=== PATIENT | female | born 1985 | race American Indian/Alaskan Native ===

== ENCOUNTER 2017-01-21 23:31 | Emergency (ER) | payer SELFPAY ==
[2017-01-21 23:32] VITALS: BMI 25.7
[2017-01-21 23:51] VITALS: BP 139/106; PULSE 108; RESP 16; TEMP 98.6; O2SAT 100
[2017-01-22] MEDS ORDERED: Iohexol 240 (50 ml) PO ONE (00:21)
[2017-01-22] MEDS ORDERED: Sodium Chloride 0.9% 1,000 ML IV STA (00:21)
[2017-01-22] MEDS ORDERED: Albuterol-Ipratrop 3 mg / 0.5 (3 ml) UD INH STA (00:22)
[2017-01-22] MEDS ORDERED: Iohexol 240 (50 ml) ONE (00:38)
[2017-01-22] MEDS ORDERED: Albuterol-Ipratrop 3 mg / 0.5 (3 ml) UD ONE (00:39)
[2017-01-22 00:47] LABS: RBC URINE 3 /hpf (0-3); URINE BILIRUBIN NEGATIVE (NEGATIVE); URINE BLOOD NEGATIVE (NEGATIVE); URINE COLOR YELLOW (YELLOW); URINE GLUCOSE (UA) NEG (Normal); URINE KETONE 20 mg/dL (NEGATIVE); URINE LEUKOCYTE ESTERASE TRACE Leu/uL (Negative); URINE PROTEIN NEGATIVE (NEGATIVE); URINE UROBILINOGEN 0.2-1.0 mg/dL (0.2-1.0); WBC URINE 1 /hpf (0-5)
[2017-01-22 00:59] LABS: BASO # 0.1 K/uL (0.0-0.2); EOS # 0.7 K/uL (0.0-0.7); EOS % 5.5 % (0.0-4.0); HEMATOCRIT 28.7 % (34.0-47.0); LYMPH # 2.2 K/uL (1.0-4.3); LYMPH % 16.6 % (20.0-40.0); MEAN CORPUSCULAR HEMOGLOBIN 22.1 pg (27.0-31.0); MEAN CORPUSCULAR HGB CONC 31.9 g/dL (33.0-37.0); MEAN PLATELET VOLUME 7.6 fl (7.2-11.7); MONO # 1.1 K/uL (0.0-0.8); MONO % 8.1 % (0.0-10.0); NEUT # 8.9 K/uL (1.8-7.0); NEUT % 68.8 % (50.0-75.0); NRBC % 0.1 % (0.0-0.0)
--- NOTE | 2017-01-22 01:04 | ED PDOC ---
HPI: Abdomen Time Seen by Provider: 01/21/17 23:43 Chief Complaint (Nursing): Abdominal Pain Chief Complaint (Provider): Abdominal Pain History Per: Patient History/Exam Limitations: no limitations Onset/Duration Of Symptoms: Intermittent Episodes (x1 week), Worse Since ( during work today, abdominal pain worsened) Current Symptoms Are (Timing): Still Present Location Of Pain/Discomfort: Diffuse, Epigastric (worst in epigastric region) Associated Symptoms: Vomiting, Constipation. denies: Fever, Chills Last Bowel Movement: Yesterday Additional Complaint(s): 31 year old female presents to ED with complaints of intermittent abdominal pain x1 week and has a past medical history of Ye-Danlos syndrome. Notes that pain worsened while at work earlier today. (+) vomiting x4 episodes (non- bloody, non-bilious), abdominal distension, and SOB. (-) fever or chills. Notes that she has not had a bowel movement since yesterday, which is abnormal for her. PCP: None Past Medical History Reviewed: Historical Data, Nursing Documentation, Vital Signs Vital Signs: Last Vital Signs Temp 98.6 F 01/21/17 23:48 Pulse 108 H 01/21/17 23:48 Resp 16 01/21/17 23:48 BP 139/106 H 01/21/17 23:48 Pulse Ox 100 01/22/17 03:56 - Medical History PMH: Anxiety, Asthma, Bipolar Disorder, Depression Denies: Diabetes, Hepatitis, HIV, HTN, Chronic Kidney Disease, Seizures, Sexually Transmitted Disease - Surgical History Surgical History: Denies: No Surg Hx - Family History Family History: States: No Known Family Hx - Social History Current smoker - smoking cessation education provided: No Ex-Smoker (has not smoked in the last 12 months): No Alcohol: Occasional Drugs: Denies - Home Medications Home Medications: Ambulatory Orders Medication Instructions Recorded Acetaminophen with Codeine 1 tab PO Q6 #10 tab 08/20/14 [Tylenol with Codeine No. 3 300 mg-30 mg] Doxycycline [Adoxa] 100 mg PO BID #14 tab 08/20/14 Metronidazole [Flagyl] 2,000 mg PO ONCE #4 tab 08/20/14 Clindamycin [Cleocin] 300 mg PO TID #21 cap 08/23/14 Esomeprazole Magnesium [Nexium] 40 mg PO ACB 30 Days capsule. 10/29/15 Ciprofloxacin [Cipro] 250 mg PO BID #6 tab 01/09/16 Ciprofloxacin [Cipro] 500 mg PO BID #14 tab 01/12/16 Phenazopyridine [Pyridium] 100 mg PO BID #6 tab 01/12/16 Famotidine [Pepcid] 20 mg PO BID #20 tab 01/22/17 Pantoprazole Sodium [Protonix] 20 mg PO DAILY #30 ect 01/22/17 - Allergies Allergies/Adverse Reactions: Allergies Allergy/AdvReac Type Severity Reaction Status Date / Time FISH Allergy ANAPHYLAXIS Verified 10/28/15 22:13 peanut Allergy ANAPHYLAXIS Verified 10/28/15 22:13 tree nut Allergy ANAPHYLAXIS Verified 10/28/15 22:13 Review of Systems ROS Statement: Except As Marked, All Systems Reviewed And Found Negative Constitutional: Negative for: Fever, Chills Gastrointestinal: Positive for: Vomiting, Abdominal Pain, Constipation, Other (( +) distension) Physical Exam - Reviewed Nursing Documentation Reviewed: Yes Vital Signs Reviewed: Yes - Physical Exam Appears: Positive for: Non-toxic, No Acute Distress Skin: Positive for: Normal Color, Warm, Dry Eye Exam: Positive for: Normal appearance ENT: Positive for: Normal ENT Inspection Neck: Positive for: Normal, Painless ROM Cardiovascular/Chest: Positive for: Regular Rate, Rhythm, Tachycardia Respiratory: Positive for: Normal Breath Sounds. Negative for: Respiratory Distress Gastrointestinal/Abdominal: Positive for: Soft, Tenderness (diffuse tenderness, worse in epigastric region), Distended. Negative for: Normal Exam Extremity: Positive for: Normal ROM. Negative for: Deformity Neurologic/Psych: Positive for: Alert, Oriented. Negative for: Motor/Sensory Deficits - Laboratory Results Result Diagrams: 01/22/17 00:50 01/22/17 00:50 - ECG O2 Sat by Pulse Oximetry: 100 (RA) Pulse Ox Interpretation: Normal Medical Decision Making Medical Decision Makin Initial impression: colitis v obstruction v diverticulitis v appendicitis Initial plan: * CTA A/P * Labs * Lact Acid * Lipase * UPreg * UDip * Duonebs 3mL INH * NS IV * Iohexol 50mL PO * Protonix Inj 40mg IVP * Peak flow pre/post Tx * UA * Re-eval 0324 CT FINDING LOWER THORAX: No infiltrate seen in the lung bases. ABDOMEN: LIVER: 9 mm low density liver lesion, most likely a cyst. Hepatomegaly, with the liver measuring 20 cm in length on the coronal images. GALLBLADDER AND BILE DUCTS: No CT evidence of acute cholecystitis. No evidence of significant biliary ductal dilatation. PANCREAS: No CT evidence of acute pancreatitis. SPLEEN: No acute abnormality of the spleen identified. ADRENALS: No acute abnormality of the adrenal glands identified. KIDNEYS AND URETERS: No acute abnormality of the kidneys identified. No evidence of significant hydrouereteronephrosis. STOMACH AND BOWEL: Wall thickening of the distal stomach, associated with multiple nearby small lymph nodes. Otherwise, no significant abnormality of the bowel is identified. No evidence of bowel obstruction. APPENDIX: Appendix is seen, and is within normal limits in appearance. PELVIS: BLADDER: No acute abnormality of the bladder identified. REPRODUCTIVE: No acute abnormality of the reproductive organs is seen. No acute abnormality of the uterus identified. No evidence of large adnexal masses. ABDOMEN and PELVIS: INTRAPERITONEAL SPACE: No evidence of free intraperitoneal air or fluid. 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 No acute fractures or other acute bony abnormality visualized. SOFT TISSUES: No acute abnormality of the visualized soft tissues is seen. VASCULATURE: No evidence of abdominal aortic aneurysm. No evidence of periaortic hemorrhage. LYMPH NODES: See above. No evidence of diffuse pathologic lymphadenopathy. IMPRESSION: - Wall thickening of the distal stomach, associated with multiple nearby small lymph nodes. In an acute setting, the findings are most likely secondary to gastritis. Recommend clinical correlation and followup. - See above for remaining findings. 325 Pt. snoring in room. Once woken up, states feeling better, no longer having pain. Results explained. Will d/c home. Return precautions discussed, GI referral given. Scribe Attestation: Documented by Daxa Franco acting as a scribe for Perez Azul MD. Scribe Attestation: All medical record entries made by the Scribe were at my direction and personally dictated by me. I have reviewed the chart and agree that the record accurately reflects my personal performance of the history, physical exam, medical decision making, and the department course for this patient. I have also personally directed, reviewed, and agree with the discharge instructions and disposition. Disposition - Clinical Impression Clinical Impression: Gastritis - Patient ED Disposition Is Patient to be Admitted: No - Disposition Referrals: Dickson RICO,MD Hany [Medical Doctor] - Disposition: Routine/Home Disposition Time: 03:49 Condition: IMPROVED Prescriptions: Famotidine [Pepcid] 20 mg PO BID #20 tab Pantoprazole Sodium [Protonix] 20 mg PO DAILY #30 ect Instructions: Gastritis (ED), Acute Abdominal Pain (DC) Forms: [employer] (Mongolian)
[2017-01-22 01:11] LABS: ALB/GLOB RATIO 1.1 (1.0-2.1); ALKALINE PHOSPHATASE 51 U/L (38-126); ALT/SGPT 30 U/L (9-52); AST/SGOT 32 U/L (14-36); BILIRUBIN,TOTAL 0.3 mg/dl (0.2-1.3); BLOOD UREA NITROGEN 17 mg/dl (7-17); CALCIUM 9.2 mg/dL (8.4-10.2); CARBON DIOXIDE 25 mmol/L (22-30); CHLORIDE 104 mmol/L (98-107); GFR AFRICAN-AMERICAN > 60; GLUCOSE,RANDOM 80 mg/dL (65-105); LIPASE 97 U/L (23-300); POTASSIUM 3.9 MMOL/L (3.6-5.0); SODIUM 138 mmol/l (132-148); TOTAL PROTEIN 7.4 G/DL (6.3-8.2)
[2017-01-22 01:28] LABS: MEAN CELL VOLUME 69.3 fl (81.0-99.0)
[2017-01-22] MEDS ORDERED: Iohexol 300 100 ML IJ ONE (02:15)
--- NOTE | 2017-01-22 11:06 | CT ---
PROCEDURE: CT Abdomen and Pelvis with contrast HISTORY: Abdominal pain and vomiting. Relevant medical history: History of Ye-Danlos syndrome. COMPARISON: 10/29/2015 TECHNIQUE: Contrast dose: 90 cc Omnipaque 300 Radiation dose: Total exam DLP = 378.38 mGy-cm. This CT exam was performed using one or more of the following dose reduction techniques: Automated exposure control, adjustment of the mA and/or kV according to patient size, and/or use of iterative reconstruction technique. FINDINGS: LOWER THORAX: Unremarkable. LIVER: Hepatic steatosis. No focal masses. No intrahepatic bile duct dilatation or perihepatic ascites. Hepatomegaly. Incidental finding(s): Sub cm cyst right hepatic lobe near the dome of the diaphragm GALLBLADDER AND BILE DUCTS: Unremarkable. PANCREAS: Unremarkable. No gross lesion or ductal dilatation. SPLEEN: Unremarkable. Incidental finding(s): Accessory splenule. ADRENALS: Unremarkable. No mass. KIDNEYS AND URETERS: Unremarkable. No hydronephrosis. No solid mass. VASCULATURE: Unremarkable. No aortic aneurysm. BOWEL: Diffuse antral thickening without focal mass or ulceration. This appears to be either a recurrent for chronic problem, similar findings with respect to severity and distribution were seen on the prior CT scan 10/29/2015. The remainder the stomach, visualized distal esophagus are unaffected. Dilatation, mild of the wall of the jejunum, small bowel consistent with mild enteritis without obstructing abnormality. APPENDIX: Normal appendix. PERITONEUM: Unremarkable. No free fluid. No free air. LYMPH NODES: Unremarkable. No enlarged lymph nodes. BLADDER: Unremarkable. REPRODUCTIVE: Unremarkable. BONES: No acute fracture. OTHER FINDINGS: None. IMPRESSION: Antritis, jejunitis. The duodenum is unaffected. These represent chronic or recurrent findings as they were visualized 10/29/2015. Additional benign and/or incidental findings described above.
== END 2017-01-22 03:59 | disposition home or self-care (01) ==
LOC: H.ER 23:31
DX: K29.70 Gastritis, unspecified, without bleeding (principal); K59.00 Constipation, unspecified; F31.9 Bipolar disorder, unspecified; F41.9 Anxiety disorder, unspecified; K52.9 Noninfective gastroenteritis and colitis, unspecified; Q79.6 Ehlers-Danlos syndromes
CPT/HCPCS: 74177; 80053; 81003; 81025; 83605; 83690; 85025; 96374; 96375; 99283; C9113; J2405; J7040; Q9966; Q9967

== ENCOUNTER 2017-04-03 21:15 | Emergency (ER) | payer SELFPAY ==
[2017-04-03 21:15] VITALS: BMI 25.7
[2017-04-03 21:32] VITALS: BP 128/82
[2017-04-03] MEDS ORDERED: Alum-Mag Hydrox-Simethicone Susp (30 mL) PO STA (21:36)
--- NOTE | 2017-04-03 21:39 | ED PDOC ---
HPI: General Adult Time Seen by Provider: 04/03/17 21:28 Chief Complaint (Nursing): Flu-like Symptoms Chief Complaint (Provider): Fever and body aches History Per: Patient History/Exam Limitations: no limitations Onset/Duration Of Symptoms: Days (x 2) Current Symptoms Are (Timing): Still Present Additional Complaint(s): 31 year old female presents to the ED complaining of fever and body aches that began yesterday. Patient reports she has been taking Motrin all day with her last dose at 18:00 of 400 mg. She also complains of a minor cough. Patient denies any nausea or vomiting. PMD: none provided Past Medical History Reviewed: Historical Data, Nursing Documentation, Vital Signs Vital Signs: Last Vital Signs Temp 100.2 F H 04/03/17 22:47 Pulse 86 04/03/17 22:47 Resp 18 04/03/17 22:47 BP 128/82 04/03/17 21:28 Pulse Ox 100 04/03/17 22:47 - Medical History PMH: Anxiety, Asthma, Bipolar Disorder, Depression - Surgical History Other surgeries: Femoral rotational osteotomy - Family History Family History: States: No Known Family Hx - Living Arrangements Living Arrangements: With Family - Social History Current smoker - smoking cessation education provided: No Alcohol: None Drugs: Denies - Home Medications Home Medications: Ambulatory Orders Medication Instructions Recorded Acetaminophen with Codeine 1 tab PO Q6 #10 tab 08/20/14 [Tylenol with Codeine No. 3 300 mg-30 mg] Doxycycline [Adoxa] 100 mg PO BID #14 tab 08/20/14 Metronidazole [Flagyl] 2,000 mg PO ONCE #4 tab 08/20/14 Clindamycin [Cleocin] 300 mg PO TID #21 cap 08/23/14 Esomeprazole Magnesium [Nexium] 40 mg PO ACB 30 Days capsule. 10/29/15 Ciprofloxacin [Cipro] 250 mg PO BID #6 tab 01/09/16 Ciprofloxacin [Cipro] 500 mg PO BID #14 tab 01/12/16 Phenazopyridine [Pyridium] 100 mg PO BID #6 tab 01/12/16 Famotidine [Pepcid] 20 mg PO BID #20 tab 01/22/17 Pantoprazole Sodium [Protonix] 20 mg PO DAILY #30 ect 01/22/17 Acetaminophen [Tylenol 325mg tab] 650 mg PO Q4 PRN #1 bottle 04/03/17 Benzonatate 200 mg PO TID PRN #20 capsule 04/03/17 Ibuprofen [Motrin] 600 mg PO Q6 PRN #20 tab 04/03/17 Oseltamivir Phosphate [Tamiflu] 75 mg PO BID #9 capsule 04/03/17 - Allergies Allergies/Adverse Reactions: Allergies Allergy/AdvReac Type Severity Reaction Status Date / Time FISH Allergy ANAPHYLAXIS Verified 04/03/17 21:28 peanut Allergy ANAPHYLAXIS Verified 04/03/17 21:28 tree nut Allergy ANAPHYLAXIS Verified 04/03/17 21:28 Review of Systems ROS Statement: Except As Marked, All Systems Reviewed And Found Negative Constitutional: Positive for: Fever, Chills, Other (body aches) ENT: Positive for: Throat Pain Respiratory: Positive for: Cough (mild). Negative for: Shortness of Breath, SOB with Exertion, Sputum Gastrointestinal: Negative for: Nausea, Vomiting Neurological: Positive for: Headache Physical Exam - Reviewed Nursing Documentation Reviewed: Yes Vital Signs Reviewed: Yes - Physical Exam Appears: Positive for: Well, Non-toxic, No Acute Distress Head Exam: Positive for: ATRAUMATIC, NORMAL INSPECTION, NORMOCEPHALIC Skin: Positive for: Normal Color. Negative for: Rash Eye Exam: Positive for: EOMI, Normal appearance, PERRL Neck: Positive for: Normal, Painless ROM Respiratory: Positive for: Normal Breath Sounds. Negative for: Wheezing, Respiratory Distress Gastrointestinal/Abdominal: Positive for: Soft. Negative for: Tenderness Extremity: Positive for: Normal ROM Neurologic/Psych: Positive for: Alert, Oriented - Laboratory Results Urine POC: Negative - ECG O2 Sat by Pulse Oximetry: 97 (RA) Pulse Ox Interpretation: Normal - Other Rad CXR X-Ray: Interpreted by Me, Viewed By Me X-Ray Interpretation: no acute finding Medical Decision Making Medical Decision Making: Time: 21:37 Impression: 31 year old with flu like symptoms Initial Plan: --Urine --Tylenol 975 mg PO --Maalox 30 ml PO --Pepcid 20 mg PO --Motrin 400 mg PO --Influenza AB --Rapid Strep --CXR Flu B is positive Patient aware of diagnostic testing results. Repeat temperature 99.9, heart rate 86. Patient given prescriptions for Tylenol, Motrin, Tamiflu and Tessalon Perles. Advised fluids, rest and follow-up with primary doctor in 2-3 days. Scribe Attestation: Documented by Layne Greenberg, acting as a scribe for Joanna Tyson PA-C Provider Scribe Attestation: All medical record entries made by the Scribe were at my direction and personally dictated by me. I have reviewed the chart and agree that the record accurately reflects my personal performance of the history, physical exam, medical decision making, and the department course for this patient. I have also personally directed, reviewed, and agree with the discharge instructions and disposition. Disposition - Clinical Impression Clinical Impression: Influenza - Patient ED Disposition Is Patient to be Admitted: No Counseled Patient/Family Regarding: Studies Performed, Diagnosis, Need For Followup, Rx Given - Disposition Referrals: [facility] [Outside] Disposition: Routine/Home Disposition Time: 22:54 Condition: STABLE Additional Instructions: Take rx meds as directed. Rest and drink plenty of fluids. Follow up with primary care doctor in 2-3 days. Prescriptions: Acetaminophen [Tylenol 325mg tab] 650 mg PO Q4 PRN #1 bottle PRN Reason: Fever >100.4 F Benzonatate 200 mg PO TID PRN #20 capsule PRN Reason: Cough Ibuprofen [Motrin] 600 mg PO Q6 PRN #20 tab PRN Reason: Pain, Moderate (4-7) Oseltamivir Phosphate [Tamiflu] 75 mg PO BID #9 capsule Instructions: Flu, Adult (DC) Forms: BPT ([employer]), [facility] ED School/Work Excuse
[2017-04-03] MEDS ORDERED: Alum-Mag Hydrox-Simethicone Susp (30 mL) ONE (21:40)
[2017-04-03 22:48] VITALS: PULSE 86; RESP 18
[2017-04-03 22:56] VITALS: O2SAT 97
[2017-04-03 23:10] VITALS: TEMP 99.9
--- NOTE | 2017-04-04 08:51 | RAD ---
HISTORY: fever COMPARISON: No prior. TECHNIQUE: Chest PA and lateral FINDINGS: LUNGS: No active pulmonary disease. PLEURA: No significant pleural effusion identified. No pneumothorax apparent. CARDIOVASCULAR: Normal. OSSEOUS STRUCTURES: No significant abnormalities. VISUALIZED UPPER ABDOMEN: Normal. OTHER FINDINGS: Incidental note is made of bilateral breast implantation. IMPRESSION: No acute cardiopulmonary disease appreciated.
== END 2017-04-03 23:17 | disposition home or self-care (01) ==
LOC: H.ER 21:15
DX: J11.1 Influenza due to unidentified influenza virus with other respiratory manifestations (principal); F31.9 Bipolar disorder, unspecified; F41.9 Anxiety disorder, unspecified; J45.909 Unspecified asthma, uncomplicated

== ENCOUNTER 2017-04-23 01:59 | Emergency (ER) | payer SELFPAY ==
[2017-04-23 02:17] VITALS: BMI 24.0
[2017-04-23 02:21] VITALS: BP 126/85; RESP 16; TEMP 99.4; O2SAT 99
[2017-04-23 02:43] LABS: HEMOGLOBIN 9.3 g/dL (12.0-16.0); MEAN CELL VOLUME 69.4 fl (81.0-99.0); MEAN CORPUSCULAR HEMOGLOBIN 21.9 pg (27.0-31.0); MEAN CORPUSCULAR HGB CONC 31.6 g/dL (33.0-37.0); RBC 4.23 Mil/uL (3.80-5.20); RED CELL DISTRIBUTION WIDTH 19.2 % (11.5-14.5); WHITE BLOOD COUNT 9.6 K/uL (4.8-10.8)
[2017-04-23 02:59] LABS: BLOOD UREA NITROGEN 10 mg/dl (7-17); CALCIUM 9.3 mg/dL (8.4-10.2); GFR AFRICAN-AMERICAN > 60; GFR NON-AFRICAN AMERICAN > 60
--- NOTE | 2017-04-23 03:16 | ED PDOC ---
HPI: Hypertension/Hypotension Time Seen by Provider: 04/23/17 02:15 Chief Complaint (Nursing): Palpitations Chief Complaint (Provider): palpitations History Per: Patient History/Exam Limitations: no limitations Onset/Duration Of Symptoms: Days (04/23/17) Associated Symptoms: denies: Chest Pain Additional Complaint(s): 31 year old female with a past medical history of Andreea-Misaels presents to the ED complaining of on and off palpitations for one year. Reports it is worse after eating. She had mild alcohol ingestion today, denies drugs. Patient has not followed-up with a doctor because of insurance problems. Denies chest pain or shortness of breath or back pain. Of note: patient is under arrest PMD: Provider TBD Past Medical History Reviewed: Historical Data, Nursing Documentation, Vital Signs Vital Signs: Last Vital Signs Temp 99.4 F 04/23/17 02:17 Pulse 103 H 04/23/17 02:17 Resp 16 04/23/17 02:17 BP 126/85 04/23/17 02:17 Pulse Ox 99 04/23/17 02:17 - Medical History PMH: Anxiety, Asthma, Bipolar Disorder, Depression Denies: Diabetes, Hepatitis, HIV, HTN, Chronic Kidney Disease, Seizures, Sexually Transmitted Disease Other PMH: ehler danlos - Family History Family History: States: Unknown Family Hx - Social History Current smoker - smoking cessation education provided: No Alcohol: Occasional Drugs: Cocaine - Home Medications Home Medications: Ambulatory Orders Medication Instructions Recorded Acetaminophen with Codeine 1 tab PO Q6 #10 tab 08/20/14 [Tylenol with Codeine No. 3 300 mg-30 mg] Doxycycline [Adoxa] 100 mg PO BID #14 tab 08/20/14 Metronidazole [Flagyl] 2,000 mg PO ONCE #4 tab 08/20/14 Clindamycin [Cleocin] 300 mg PO TID #21 cap 08/23/14 Esomeprazole Magnesium [Nexium] 40 mg PO ACB 30 Days capsule. 10/29/15 Ciprofloxacin [Cipro] 250 mg PO BID #6 tab 01/09/16 Ciprofloxacin [Cipro] 500 mg PO BID #14 tab 01/12/16 Phenazopyridine [Pyridium] 100 mg PO BID #6 tab 01/12/16 Famotidine [Pepcid] 20 mg PO BID #20 tab 01/22/17 Pantoprazole Sodium [Protonix] 20 mg PO DAILY #30 ect 01/22/17 Acetaminophen [Tylenol 325mg tab] 650 mg PO Q4 PRN #1 bottle 04/03/17 Benzonatate 200 mg PO TID PRN #20 capsule 04/03/17 Ibuprofen [Motrin] 600 mg PO Q6 PRN #20 tab 04/03/17 Oseltamivir Phosphate [Tamiflu] 75 mg PO BID #9 capsule 04/03/17 - Allergies Allergies/Adverse Reactions: Allergies Allergy/AdvReac Type Severity Reaction Status Date / Time FISH Allergy ANAPHYLAXIS Verified 04/23/17 02:16 peanut Allergy ANAPHYLAXIS Verified 04/23/17 02:16 tree nut Allergy ANAPHYLAXIS Verified 04/23/17 02:16 Review of Systems ROS Statement: Except As Marked, All Systems Reviewed And Found Negative Cardiovascular: Positive for: Palpitations (on and off). Negative for: Chest Pain Respiratory: Negative for: Shortness of Breath Physical Exam - Reviewed Nursing Documentation Reviewed: Yes Vital Signs Reviewed: Yes - Physical Exam Appears: Positive for: Well, Non-toxic, No Acute Distress Head Exam: Positive for: ATRAUMATIC, NORMAL INSPECTION, NORMOCEPHALIC Skin: Positive for: Normal Color, Warm, Dry Eye Exam: Positive for: EOMI, Normal appearance, PERRL ENT: Positive for: Normal ENT Inspection Neck: Positive for: Normal, Painless ROM, Supple. Negative for: Decreased ROM, Limited ROM Cardiovascular/Chest: Positive for: Regular Rate, Rhythm. Negative for: Murmur Respiratory: Positive for: Normal Breath Sounds. Negative for: Decreased Breath Sounds, Accessory Muscle Use, Wheezing Gastrointestinal/Abdominal: Positive for: Normal Exam, Bowel Sounds, Soft. Negative for: Tenderness, Guarding, Rebound Back: Positive for: Normal Inspection. Negative for: L CVA Tenderness, R CVA Tenderness Extremity: Positive for: Normal ROM. Negative for: Tenderness, Pedal Edema, Deformity Neurologic/Psych: Positive for: Alert, Oriented (x3), Gait - Laboratory Results Result Diagrams: 04/23/17 02:35 04/23/17 02:35 - ECG ECG Rhythm: Positive for: Normal QRS, Sinus Tachycardia O2 Sat by Pulse Oximetry: 99 (RA) Pulse Ox Interpretation: Normal - Radiology X-Ray Interpretation: No Acute Disease, Mediastinum (normal) Medical Decision Making Medical Decision Making: Time: 02:25 Impression: Non-specific palpitations for patient with connective tissue disorder A/P: Not concerned for dissection at this time --EKG --BMP --Troponin I --ED urine POC --CBC stat --Chest Portable [Rad] --Aircraft Servicer --Reevaluation 350 Workup negative, will refer patient to [facility]. return precautions discussed. pt. well appearing and ambulatory upon discharge. Scribe Attestation: Documented by Janie Shipley, acting as a scribe for Perez Azul MD Provider Scribe Attestation: All medical record entries made by the Scribe were at my direction and personally dictated by me. I have reviewed the chart and agree that the record accurately reflects my personal performance of the history, physical exam, medical decision making, and the department course for this patient. I have also personally directed, reviewed, and agree with the discharge instructions and disposition. Disposition - Clinical Impression Clinical Impression: Palpitations - Patient ED Disposition Is Patient to be Admitted: No - Disposition Referrals: [facility] [place] [Outside] Disposition: Discharged/Transfer to Law Enforcement Disposition Time: 03:51 Condition: IMPROVED Additional Instructions: Patient is medically and psychiatrically cleared for incarceration. Instructions: Palpitations, Ye-Danlos Syndrome Forms: [employer] (Citizen Of [place])
[2017-04-23 04:07] VITALS: PULSE 85
--- NOTE | 2017-04-23 08:18 | RAD ---
HISTORY: hx of ehler danlos syndrome, palpitations COMPARISON: Chest radiographs 04/03/2017. FINDINGS: LUNGS: No active pulmonary disease. PLEURA: No significant pleural effusion identified, no pneumothorax apparent. CARDIOVASCULAR: Normal. OSSEOUS STRUCTURES: No significant abnormalities. VISUALIZED UPPER ABDOMEN: Normal. OTHER FINDINGS: Incidental note is made of bilateral breast implantation. IMPRESSION: No interval acute cardiopulmonary disease appreciated.
--- NOTE | 2017-04-23 11:58 | CARD ---
APPROVED REPORT EKG Measurement Heart [id number] <Conclusion> Sinus tachycardia Otherwise normal ECG
== END 2017-04-23 04:33 ==
LOC: H.ER 01:59
DX: R00.2 Palpitations (principal); R07.89 Other chest pain; D47.3 Essential (hemorrhagic) thrombocythemia; F31.9 Bipolar disorder, unspecified; F41.9 Anxiety disorder, unspecified; I10 Essential (primary) hypertension; J45.909 Unspecified asthma, uncomplicated; Q79.6 Ehlers-Danlos syndromes

== ENCOUNTER 2017-06-14 00:27 | Observation (INO) | payer SELFPAY ==
[2017-06-14 00:28] VITALS: BMI 24.0
[2017-06-14] MEDS ORDERED: Sodium Chloride 0.9% 100 ML ONE (00:52)
[2017-06-14] MEDS ORDERED: Iodixanol 320 MG/ML 100 ML BOTTLE IV ONE (00:52)
[2017-06-14 01:09] LABS: SQUAMOUS EPITHIAL 3 /hpf (0-5); URINE BACTERIA RARE (<OCC); URINE BILIRUBIN NEGATIVE (NEGATIVE); URINE BLOOD NEGATIVE (NEGATIVE); URINE CLARITY SLIGHTY-CLOUDY (Clear); URINE COLOR YELLOW (YELLOW); URINE GLUCOSE (UA) NEG (Normal); URINE LEUKOCYTE ESTERASE MOD Leu/uL (Negative); URINE PROTEIN NEGATIVE (NEGATIVE); URINE UROBILINOGEN 0.2-1.0 mg/dL (0.2-1.0)
--- NOTE | 2017-06-14 01:11 | ED PDOC ---
HPI: SOB/CHF/COPD Time Seen by Provider: 06/14/17 00:35 Chief Complaint (Nursing): Shortness Of Breath Chief Complaint (Provider): Shortness Of Breath History Per: Patient History/Exam Limitations: no limitations Onset/Duration Of Symptoms: Days (x2) Current Symptoms Are (Timing): Still Present Additional Complaint(s): 31 year old female with medical history of Ye-Danlos syndrome, bipolar disorder and thrombotic issues, presents to the emergency department with a complaint of shortness of breath and chest pain on inspiration ongoing since 06/25. Patient states she was working last night when symptoms began and continued when she went to work this earlier this morning. She reports using Albuterol today with no relief and concerned due to her twin sister passing away from a PE. She admits to drinking 2 beers today but denies any wheezing. PMD: none provided Past Medical History Reviewed: Historical Data, Nursing Documentation, Vital Signs Vital Signs: Last Vital Signs Temp 98.5 F 06/14/17 04:15 Pulse 82 06/14/17 04:52 Resp 18 06/14/17 04:52 BP 114/74 06/14/17 04:15 Pulse Ox 100 06/14/17 05:54 - Medical History PMH: Anxiety, Asthma, Bipolar Disorder, Depression Denies: Diabetes, Hepatitis, HIV, HTN, Chronic Kidney Disease, Seizures, Sexually Transmitted Disease - Family History Family History: States: Unknown Family Hx - Social History Current smoker - smoking cessation education provided: No Alcohol: Occasional Drugs: Denies - Home Medications Home Medications: Ambulatory Orders Medication Instructions Recorded No Known Home Med 06/14/17 - Allergies Allergies/Adverse Reactions: Allergies Allergy/AdvReac Type Severity Reaction Status Date / Time FISH Allergy ANAPHYLAXIS Verified 04/23/17 02:16 peanut Allergy ANAPHYLAXIS Verified 04/23/17 02:16 tree nut Allergy ANAPHYLAXIS Verified 04/23/17 02:16 Review of Systems ROS Statement: Except As Marked, All Systems Reviewed And Found Negative Cardiovascular: Positive for: Chest Pain (with inspiration) Respiratory: Positive for: Shortness of Breath. Negative for: Wheezing Physical Exam - Reviewed Nursing Documentation Reviewed: Yes Vital Signs Reviewed: Yes - Physical Exam Appears: Positive for: Non-toxic, Uncomfortable, In Acute Distress (mildly) Head Exam: Positive for: ATRAUMATIC, NORMAL INSPECTION, NORMOCEPHALIC Skin: Positive for: Normal Color Eye Exam: Positive for: Normal appearance, EOMI, PERRL Cardiovascular/Chest: Positive for: Regular Rate, Rhythm, Chest Non Tender. Negative for: Murmur Respiratory: Positive for: Decreased Breath Sounds (right lung), Respiratory Distress (mildly), Other (tachypnea). Negative for: Wheezing Gastrointestinal/Abdominal: Positive for: Normal Exam, Soft Extremity: Positive for: Normal ROM (upper/lower) Neurologic/Psych: Positive for: Alert, Oriented, Other (difficulty completing sentences secondary to tachypnea). Negative for: Motor/Sensory Deficits - Laboratory Results Result Diagrams: 06/14/17 00:50 06/14/17 03:24 - ECG O2 Sat by Pulse Oximetry: 100 (RA) Pulse Ox Interpretation: Normal Medical Decision Making Medical Decision Making: Initial Impression: Shortness of breath; Chest pain. R/O PE jose pneumoani r Initial Plan: * Type and screen * CTA chest * CMP * CBC * D Dimer * PTT * Patient * Urine C&S * UA Time: 00:49 --Patient placed on 02 via NC. Time: 120 --CTA chest FINDINGS: Limitations: Suboptimal timing of bolus. Pulmonary arteries: No definite pulmonary embolism. Aorta: No aneurysm. No dissection. Lungs: Minimal atelectasis. No consolidation. Pleural space: No significant effusion. No pneumothorax. Heart: No cardiomegaly. No significant pericardial effusion. Bones/joints: No acute fracture. Soft tissues: Breast implants. Lymph nodes: No pathologically enlarged lymph nodes. Liver: Probable 1.0 cm cyst. IMPRESSION: 1. No definite CT evidence of pulmonary embolism. 2. Incidental/non-acute findings are described above. Time: 125 --Labs: microcytic anemia Time: 228 --Patient gave written consent for blood transfusion. She states that she does not have a PMD so hospitalist will evaluate. --Discussed case with Dr. Garcia. Patient will be admitted to tele-OBS for persistent SOB. Scribe Attestation: Documented by Eleanor Walters, acting as a scribe for Meir Nieves MD. Provider Scribe Attestation: All medical record entries made by the Scribe were at my direction and personally dictated by me. I have reviewed the chart and agree that the record accurately reflects my personal performance of the history, physical exam, medical decision making, and the department course for this patient. I have also personally directed, reviewed, and agree with the discharge instructions and disposition. Disposition - Clinical Impression Clinical Impression: Respiratory distress - Patient ED Disposition Is Patient to be Admitted: Yes Counseled Patient/Family Regarding: Need For Followup - Disposition Disposition Time: 01:00 Condition: STABLE
[2017-06-14 01:16] LABS: ALB/GLOB RATIO 1.1 (1.0-2.1); ALBUMIN 4.1 g/dL (3.5-5.0); ALT/SGPT 28 U/L (9-52); AST/SGOT 25 U/L (14-36); BASO # 0.1 K/uL (0.0-0.2); BASO % 0.7 % (0.0-2.0); BLOOD UREA NITROGEN 13 mg/dl (7-17); CALCIUM 8.9 mg/dL (8.4-10.2); EOS # 0.6 K/uL (0.0-0.7); EOS % 6.3 % (0.0-4.0); GFR AFRICAN-AMERICAN > 60; GFR NON-AFRICAN AMERICAN > 60; HEMOGLOBIN 8.4 g/dL (12.0-16.0); LYMPH # 2.4 K/uL (1.0-4.3); LYMPH % 26.8 % (20.0-40.0); MEAN CELL VOLUME 65.2 fl (81.0-99.0); MEAN CORPUSCULAR HEMOGLOBIN 20.7 pg (27.0-31.0); MEAN CORPUSCULAR HGB CONC 31.7 g/dL (33.0-37.0); MEAN PLATELET VOLUME 7.3 fl (7.2-11.7); MONO # 0.7 K/uL (0.0-0.8); MONO % 7.8 % (0.0-10.0); NEUT # 5.3 K/uL (1.8-7.0); NEUT % 58.4 % (50.0-75.0); NRBC % 0.1 % (0.0-0.0); RBC 4.04 Mil/uL (3.80-5.20); RED CELL DISTRIBUTION WIDTH 19.7 % (11.5-14.5); WHITE BLOOD COUNT 9.1 K/uL (4.8-10.8)
--- NOTE | 2017-06-14 01:21 | CT ---
EXAM: CT Angiography Chest With Intravenous Contrast CLINICAL HISTORY: 31 years old, female; Signs and symptoms; Shortness of breath; Additional info: SOB TECHNIQUE: Axial computed tomographic angiography images of the chest with intravenous contrast using pulmonary embolism protocol. All CT scans at this facility use one or more dose reduction techniques, viz.: automated exposure control; ma/kV adjustment per patient size (including targeted exams where dose is matched to indication; i.e. head); or iterative reconstruction technique. MIP reconstructed images were created and reviewed. Coronal and sagittal reformatted images were created and reviewed. CONTRAST: 90 mL of [id number] administered intravenously. COMPARISON: CR - CHEST PORTABLE 2017-04-23 03:06 FINDINGS: Limitations: Suboptimal timing of bolus. Pulmonary arteries: No definite pulmonary embolism. Aorta: No aneurysm. No dissection. Lungs: Minimal atelectasis. No consolidation. Pleural space: No significant effusion. No pneumothorax. Heart: No cardiomegaly. No significant pericardial effusion. Bones/joints: No acute fracture. Soft tissues: Breast implants. Lymph nodes: No pathologically enlarged lymph nodes. Liver: Probable 1.0 cm cyst. IMPRESSION: 1. No definite CT evidence of pulmonary embolism. 2. Incidental/non-acute findings are described above.
[2017-06-14] MEDS ORDERED: Potassium Chloride 20 mEq ER Tab PO ONE ×2 (01:25→01:37)
[2017-06-14] MEDS ORDERED: Albuterol 0.083% Inhal Sol (2.5 mg/3 mL) UD INH ONE (01:25)
[2017-06-14] MEDS ORDERED: Albuterol 0.083% Inhal Sol (2.5 mg/3 mL) UD ONE (01:37)
[2017-06-14 01:53] LABS: INR 0.9 (0.9-1.2); PROTHROMBIN TIME 9.8 Seconds (9.8-13.1)
--- NOTE | 2017-06-14 02:45 | CP.PCM.HP ---
History of Present Illness - History of Present Illness History of Present Illness: PCP: None Chief Complaint: SOB The patient was seen and examined in the ED HPI: 31 years old female with hx of Ye Danlos syndrome and Asthma, comes with 2 days of SOB, worse on exertion, associated with pleuritic chest pains, and not relieved with Albuterol. She drank 2 beers today and has used Cocaine in the past, but no diaphoresis, wheezes, fever, cough, PMH: Anxiety, Asthma, Bipolar Disorder, Depression; Ye Danlos syndrome PSH: Breast Augmentation; Right Femoral Rotational Osteomy SH: Alcohol Socially; No cigarette smoking; Occasional Cocaine use; Live with Significant other; works in a Restaurant FH: States: Unknown Family Hx Allergies: NKDA Peanuts; Tree Nuts; Fish; Medication: Reviewed - Present on Admission - Present on Admission Any Indicators Present on Admission: No History of DVT/PE: No History of Uncontrolled Diabetes: No Urinary Catheter: No Decubitus Ulcer Present: No Review of Systems - Constitutional Constitutional: absent: Chills, Fever, Headache, Lethargy, Weakness - EENT Eyes: Requires Corrective Lenses. absent: Floaters, Itchy Eyes, Sees Flashes Ears: absent: Decreased Hearing, Ear Discharge, Ear Pain, Tinnitus Nose/Mouth/Throat: Epistaxis. absent: Nasal Congestion, Nasal Discharge, Sinus Pain, Sinus Pressure - Cardiovascular Cardiovascular: Chest Pain, Dyspnea. absent: Edema - Respiratory Respiratory: Dyspnea. absent: Cough, Wheezing, Stridor, Chest Congestion - Gastrointestinal Gastrointestinal: absent: Constipation, Diarrhea, Nausea, Vomiting - Genitourinary Genitourinary: absent: Dysuria, Flank Pain, Hematuria, Urinary Frequency - Musculoskeletal Musculoskeletal: absent: Abnormal Gait, Muscle Weakness, Neck Pain, Radiating Pain into Limb, Stiffness - Integumentary Integumentary: absent: Pruritus, Rash, Skin Ulcer, Sores, Striae, Swelling - Neurological Neurological: absent: Burning Sensations, Headaches, Memory Loss, Paresthesias, Radicular Pain, Weakness - Psychiatric Psychiatric: absent: Anxiety, Depression, Panic Attacks, Suicidal Ideation - Endocrine Endocrine: absent: Palpitations, Polydipsia, Polyphagia, Polyuria - Hematologic/Lymphatic Hematologic: absent: Easy Bleeding, Easy Bruising Past Patient History - Infectious Disease Hx of Infectious Diseases: None - Tetanus Immunizations Tetanus Immunization: Unknown - Past Medical History & Family History Past Medical History?: Yes - Past Social History Smoking Status: Never Smoked Chewing Tobacco Use: No Cigar Use: No Alcohol: Occasional Drugs: Cocaine - CARDIAC Hx Cardiac Disorders: No Hx Hypertension: No - PULMONARY Hx Asthma: Yes - NEUROLOGICAL Hx Neurological Disorder: No Hx Seizures: No - HEENT Hx HEENT Problems: No - RENAL Hx Chronic Kidney Disease: No - ENDOCRINE/METABOLIC Hx Endocrine Disorders: No - HEMATOLOGICAL/ONCOLOGICAL Hx Blood Disorders: No Hx Human Immunodeficiency Virus (HIV): No - INTEGUMENTARY Hx Dermatological Problems: No - MUSCULOSKELETAL/RHEUMATOLOGICAL Hx Musculoskeletal Disorders: Yes (EhlersDanlos syndrome) - GASTROINTESTINAL Hx Gastrointestinal Disorders: Yes - GENITOURINARY/GYNECOLOGICAL Hx Sexually Transmitted Disorders: No - PSYCHIATRIC Hx Anxiety: Yes Hx Bipolar Disorder: Yes Hx Depression: Yes - SURGICAL HISTORY Hx Surgeries: Yes Hx Musculoskeletal Surgery: Yes (Right femoral rotational osteotomy) Other/Comment: Breast augmentation - ANESTHESIA Hx Anesthesia: Yes Hx Anesthesia Reactions: No Meds Allergies/Adverse Reactions: Allergies Allergy/AdvReac Type Severity Reaction Status Date / Time FISH Allergy ANAPHYLAXIS Verified 04/23/17 02:16 peanut Allergy ANAPHYLAXIS Verified 04/23/17 02:16 tree nut Allergy ANAPHYLAXIS Verified 04/23/17 02:16 Physical Exam - Constitutional Appears: No Acute Distress - Head Exam Head Exam: ATRAUMATIC, NORMAL INSPECTION, NORMOCEPHALIC - Eye Exam Eye Exam: EOMI, Normal appearance Pupil Exam: NORMAL ACCOMODATION, PERRL - Neck Exam Neck exam: Positive for: Full Rom, Normal Inspection. Negative for: Lymphadenopathy, Tenderness, Thyromegaly - Respiratory Exam Respiratory Exam: Clear to Auscultation Bilateral. absent: Rales, Rhonchi, Wheezes - Cardiovascular Exam Cardiovascular Exam: REGULAR RHYTHM, RRR, +S1, +S2. absent: Gallop, Rubs - GI/Abdominal Exam GI & Abdominal Exam: Normal Bowel Sounds, Soft - Rectal Exam Rectal Exam: Deferred - Extremities Exam Extremities exam: Positive for: full ROM, normal inspection, tenderness. Negative for: pedal edema - Back Exam Back exam: CVA tenderness (R), NORMAL INSPECTION - Neurological Exam Neurological exam: CN II-XII Intact, Oriented x3, Reflexes Normal - Psychiatric Exam Psychiatric exam: Normal Affect, Normal Mood - Skin Skin Exam: Dry, Intact, Normal Color, Warm Results - Vital Signs Recent Vital Signs: Last Vital Signs Temp 99 F 06/14/17 00:35 Pulse 94 H 06/14/17 00:35 Resp 20 06/14/17 01:49 BP 122/90 06/14/17 00:35 Pulse Ox 100 06/14/17 02:36 - Labs Result Diagrams: 06/14/17 00:50 06/14/17 03:24 Labs: Laboratory Results - last 24 hr 06/14/17 06/14/17 06/14/17 00:50 00:50 00:50 WBC 9.1 RBC 4.04 Hgb 8.4 L Hct 26.4 L MCV 65.2 L D MCH 20.7 L MCHC 31.7 L RDW 19.7 H Plt Count 293 D MPV 7.3 Neut % (Auto) 58.4 Lymph % (Auto) 26.8 [place] % (Auto) 7.8 Eos % (Auto) 6.3 H Baso % (Auto) 0.7 Neut # (Auto) 5.3 Lymph # (Auto) 2.4 [place] # (Auto) 0.7 Eos # (Auto) 0.6 Baso # (Auto) 0.1 PT 9.8 INR 0.9 APTT 25.0 L D-Dimer, Quantitative 320 H Sodium 139 Potassium 3.4 L Chloride 105 Carbon Dioxide 18 L Anion Gap 19 BUN 13 Creatinine 0.5 L Est GFR ( Amer) > 60 Est GFR (Non-Af Amer) > 60 Random Glucose 77 Calcium 8.9 Total Bilirubin 0.2 AST 25 ALT 28 Alkaline Phosphatase 54 Total Protein 8.0 Albumin 4.1 Globulin 3.9 Albumin/Globulin Ratio 1.1 Urine Color Urine Clarity Urine pH Ur Specific [place] Urine Protein Urine Glucose (UA) Urine Ketones Urine Blood Urine Nitrate Urine Bilirubin Urine Urobilinogen Ur Leukocyte Esterase Urine RBC (Auto) Urine Microscopic WBC Ur Squamous Epith Cells Urine Bacteria Blood Type Antibody Screen BBK History Checked 06/14/17 06/14/17 00:50 00:50 WBC RBC Hgb Hct MCV MCH MCHC RDW Plt Count MPV Neut % (Auto) Lymph % (Auto) [place] % (Auto) Eos % (Auto) Baso % (Auto) Neut # (Auto) Lymph # (Auto) [place] # (Auto) Eos # (Auto) Baso # (Auto) PT INR APTT D-Dimer, Quantitative Sodium Potassium Chloride Carbon Dioxide Anion Gap BUN Creatinine Est GFR ( Amer) Est GFR (Non-Af Amer) Random Glucose Calcium Total Bilirubin AST ALT Alkaline Phosphatase Total Protein Albumin Globulin Albumin/Globulin Ratio Urine Color Yellow Urine Clarity Slighty-cloudy Urine pH 6.0 Ur Specific [place] 1.016 Urine Protein Negative Urine Glucose (UA) Neg Urine Ketones Negative Urine Blood Negative Urine Nitrate Negative Urine Bilirubin Negative Urine Urobilinogen 0.2-1.0 Ur Leukocyte Esterase Mod Urine RBC (Auto) 3 Urine Microscopic WBC 1 Ur Squamous Epith Cells 3 Urine Bacteria Rare Blood Type B POSITIVE Antibody Screen Negative BBK History Checked No verified bt - EKG Data EKG comments: EKG: NSR with sinus arrhythmia. - Imaging and Cardiology CT scan - Chest Status: Report reviewed by me Additional comment: No Pulmonary Embolism # Assessment & Plan - Assessment and Plan (Free Text) Assessment: # Pleuritic chest Pain #; Microcytic Aneming #. Hypokalemia #. Ehler Danlos syndrome Plan: 31 years old female with hx of Ye Danlos syndrome and Asthma, comes with 2 days of SOB, worse on exertion, associated with pleuritic chest pains, and not relieved with Albuterol. She drank 2 beers today and has used Cocaine in the past, but no diaphoresis, wheezes, fever, cough, #. SOB increasing on exertion, with Pleuritic chest Pain, CTA negative for Pulmonary embolism. Bronchial Asthma likely. Patient with Anemia which could contribute to the SOB. r/o CHF and CAD - Pro BNP if elevated , would do an ECHO - Troponin - Albuterol Bronchodilators #. Microcytic Anemia - Transfuse one unit of PRBC - Continue Ferrous Sulfate #. Hypokalemia - Repleat - Follow Electrolyte #. Ehler Danlos syndrome - Conservative management #. DVT prophylaxis with SCD and Lovenox #. Code Status: Full - Date & Time Date: 06/14/17 Time: 02:45
[2017-06-14 03:59] LABS: B-TYPE NATRIURETIC PEPTIDE 60.3 pg/ml (0-450)
[2017-06-14 04:07] LABS: BLOOD UREA NITROGEN 13 mg/dl (7-17); GFR AFRICAN-AMERICAN > 60; GFR NON-AFRICAN AMERICAN > 60
[2017-06-14 04:08] LABS: CALCIUM 9.1 mg/dL (8.4-10.2)
[2017-06-14 04:41] VITALS: RESP 18
[2017-06-14] MEDS ORDERED: Pneumococcal 23-Valent Vaccine IM ONE (05:23)
[2017-06-14 06:48] LABS: HEMOGLOBIN 7.6 g/dL (12.0-16.0); MEAN CELL VOLUME 63.9 fl (81.0-99.0); MEAN CORPUSCULAR HEMOGLOBIN 20.9 pg (27.0-31.0); MEAN CORPUSCULAR HGB CONC 32.7 g/dL (33.0-37.0); RBC 3.64 Mil/uL (3.80-5.20); RED CELL DISTRIBUTION WIDTH 19.7 % (11.5-14.5)
[2017-06-14] MEDS: Albuterol 0.083% Inhal Sol (2.5 mg/3 mL) UD INH SCH ×2 (08:54→13:44)
[2017-06-14] MEDS ORDERED: Enoxaparin 40 mg Syringe SC SCH (09:00)
--- NOTE | 2017-06-14 09:33 | CP.PCM.DIS ---
Provider - Provider Date of Admission: 06/14/17 02:25 Attending physician: Brennan Garcia Primary care physician: none Time Spent in preparation of Discharge (in minutes): 15 Hospital Course - Lab Results Lab Results: Most Recent Lab Values WBC 8.0 K/uL (4.8-10.8) 06/14/17 06:30 RBC 3.64 Mil/uL (3.80-5.20) L 06/14/17 06:30 Hgb 7.6 g/dL (12.0-16.0) L 06/14/17 06:30 Hct 23.3 % (34.0-47.0) L 06/14/17 06:30 MCV 63.9 fl (81.0-99.0) L 06/14/17 06:30 MCH 20.9 pg (27.0-31.0) L 06/14/17 06:30 MCHC 32.7 g/dL (33.0-37.0) L 06/14/17 06:30 RDW 19.7 % (11.5-14.5) H 06/14/17 06:30 Plt Count 259 K/uL (130-400) 06/14/17 06:30 MPV 7.3 fl (7.2-11.7) 06/14/17 00:50 Neut % (Auto) 58.4 % (50.0-75.0) 06/14/17 00:50 Lymph % (Auto) 26.8 % (20.0-40.0) 06/14/17 00:50 [place] % (Auto) 7.8 % (0.0-10.0) 06/14/17 00:50 Eos % (Auto) 6.3 % (0.0-4.0) H 06/14/17 00:50 Baso % (Auto) 0.7 % (0.0-2.0) 06/14/17 00:50 Neut # (Auto) 5.3 K/uL (1.8-7.0) 06/14/17 00:50 Lymph # (Auto) 2.4 K/uL (1.0-4.3) 06/14/17 00:50 [place] # (Auto) 0.7 K/uL (0.0-0.8) 06/14/17 00:50 Eos # (Auto) 0.6 K/uL (0.0-0.7) 06/14/17 00:50 Baso # (Auto) 0.1 K/uL (0.0-0.2) 06/14/17 00:50 PT 9.8 Seconds (9.8-13.1) 06/14/17 00:50 INR 0.9 (0.9-1.2) 06/14/17 00:50 APTT 25.0 Seconds (25.6-37.1) L 06/14/17 00:50 D-Dimer, Quantitative 320 ng/mlDDU (0-230) H 06/14/17 00:50 Sodium 138 mmol/l (132-148) 06/14/17 03:24 Potassium 3.6 MMOL/L (3.6-5.0) 06/14/17 03:24 Chloride 104 mmol/L (98-107) 06/14/17 03:24 Carbon Dioxide 18 mmol/L (22-30) L 06/14/17 03:24 Anion Gap 20 (10-20) 06/14/17 03:24 BUN 13 mg/dl (7-17) 06/14/17 03:24 Creatinine 0.6 mg/dl (0.7-1.2) L 06/14/17 03:24 Est GFR ( Amer) > 60 06/14/17 03:24 Est GFR (Non-Af Amer) > 60 06/14/17 03:24 Random Glucose 82 mg/dL (65-105) 06/14/17 03:24 Calcium 9.1 mg/dL (8.4-10.2) 06/14/17 03:24 Total Bilirubin 0.2 mg/dl (0.2-1.3) 06/14/17 00:50 AST 25 U/L (14-36) 06/14/17 00:50 ALT 28 U/L (9-52) 06/14/17 00:50 Alkaline Phosphatase 54 U/L (38-126) 06/14/17 00:50 Troponin I < 0.0120 ng/mL (0.00-0.120) 06/14/17 03:24 NT-Pro-B Natriuret Pep 60.3 pg/ml (0-450) 06/14/17 03:24 Total Protein 8.0 G/DL (6.3-8.2) 06/14/17 00:50 Albumin 4.1 g/dL (3.5-5.0) 06/14/17 00:50 Globulin 3.9 gm/dL (2.2-3.9) 06/14/17 00:50 Albumin/Globulin Ratio 1.1 (1.0-2.1) 06/14/17 00:50 Urine Color Yellow (YELLOW) 06/14/17 00:50 Urine Clarity Slighty-cloudy (Clear) 06/14/17 00:50 Urine pH 6.0 (5.0-8.0) 06/14/17 00:50 Ur Specific [place] 1.016 (1.003-1.030) 06/14/17 00:50 Urine Protein Negative mg/dL (NEGATIVE) 06/14/17 00:50 Urine Glucose (UA) Neg mg/dL (Normal) 06/14/17 00:50 Urine Ketones Negative mg/dL (NEGATIVE) 06/14/17 00:50 Urine Blood Negative (NEGATIVE) 06/14/17 00:50 Urine Nitrate Negative (NEGATIVE) 06/14/17 00:50 Urine Bilirubin Negative (NEGATIVE) 06/14/17 00:50 Urine Urobilinogen 0.2-1.0 mg/dL (0.2-1.0) 06/14/17 00:50 Ur Leukocyte Esterase Mod [place]/uL (Negative) 06/14/17 00:50 Urine RBC (Auto) 3 /hpf (0-3) 06/14/17 00:50 Urine Microscopic WBC 1 /hpf (0-5) 06/14/17 00:50 Ur Squamous Epith Cells 3 /hpf (0-5) 06/14/17 00:50 Urine Bacteria Rare (<OCC) 06/14/17 00:50 Blood Type B POSITIVE 06/14/17 00:50 Blood Type Confirm B POSITIVE 06/14/17 00:30 Antibody Screen Negative 06/14/17 00:50 Crossmatch See Detail 06/14/17 00:50 BBK History Checked No verified bt 06/14/17 00:50 - Hospital Course Hospital Course: 31 years old female with hx of Ye Danlos syndrome , bipolar disoder not on any medication and Asthma, came with 2 day history of SOB, worse on exertion, 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 She drank 2 beers today and has used Cocaine in the past, but no diaphoresis, wheezes, fever, cough. Her physical exam was normal with no wheezing or rhonchi . CTA chest showed no PE and no infiltrtae . BNP was 60 troponins were negative Her lab work up showed microcytic anemia of 7.6 . As per patient she has not been eating well latewly with decreased PO intake and has lost 25 lbs She was placed under observation for sypmtomatic anemia, transfused with 1 unit PRBC. As per patient she has history of anemia since early age and has been on iron supplements. patient stating that clinically feels better. Most likely etiology of her SOB is microcytic anemia. Will discharge patient home Prescribed ferrous sulfate 325 mg po bid Follow up with [facility] and mental health clinic fo0r management of her bipolar disorder . 1. Symptomatic anemia 2. Dyspnea on exertion secondary to anemia 3. Microcytic anemia most likely secondary to iron deficiency-- has decresaed PO intkae. Replace with PO iron . follow up with [facility] for further work up 4.bipolar disorder with anxiety- follow up with mental health clinic since is not on any treatment ( denies suicidal ideation or thoughts) 5.Ehler Danlos syndrome Discharge Exam - Head Exam Head Exam: ATRAUMATIC, NORMAL INSPECTION, NORMOCEPHALIC - Eye Exam Eye Exam: EOMI, Normal appearance, PERRL Pupil Exam: NORMAL ACCOMODATION - ENT Exam ENT Exam: Mucous Membranes Moist, Normal Exam - Neck Exam Neck exam: Full Rom, Normal Inspection - Respiratory Exam Respiratory Exam: Clear to PA & Lateral, NORMAL BREATHING PATTERN. absent: Rales, Rhonchi, Wheezes - Cardiovascular Exam Cardiovascular Exam: REGULAR RHYTHM, RRR, +S1, +S2. absent: JVD - GI/Abdominal Exam GI & Abdominal Exam: Normal Bowel Sounds, Soft. absent: Distended, Guarding, Rebound, Tenderness - Rectal Exam Rectal Exam: Deferred - Extremities Exam Extremities exam: normal capillary refill, normal inspection, pedal pulses present - Back Exam Back exam: NORMAL INSPECTION - Neurological Exam Neurological exam: Alert, CN II-XII Intact, Oriented x3, Reflexes Normal - Psychiatric Exam Psychiatric exam: Normal Affect - Skin Skin Exam: Dry, Intact, Warm Discharge Plan - Discharge Medications Prescriptions: Ferrous Sulfate 325 mg PO BID #60 tablet - Follow Up Plan Condition: STABLE Disposition: HOME/ ROUTINE Patient education suggested?: Yes Instructions: Anemia of Chronic Disease Additional Instructions: follow up in the clinic with on 06/22/17 3:30pm please arrive half hour before for registration. follow up in the mental health clinic [phone] in 1 week Referrals: [facility] [place] [Outside]
[2017-06-14 12:12] VITALS: BP 116/81; PULSE 96; TEMP 98.4; O2SAT 99
== END 2017-06-14 14:18 | disposition home or self-care (01) ==
LOC: H.ER 00:27 → H.ERHOLD 02:25 → H.TEL 04:10
PROVIDERS: ADMIT Internal Medicine; ATTEND Internal Medicine
DX: D50.9 Iron deficiency anemia, unspecified (principal); E87.6 Hypokalemia; R07.81 Pleurodynia; F31.9 Bipolar disorder, unspecified; F41.9 Anxiety disorder, unspecified; Z23 Encounter for immunization; Z91.010 Allergy to peanuts; Z91.013 Allergy to seafood
CPT/HCPCS: 36430; 71275; 80053; 81003; 81025; 83880; 84484; 85025; 85027; 85378; 85610; 85730; 86850; 86900; 86920; 87086; 87181; 90732; 94150; 94640; 99285; G0009; G0378; P9051; Q9967

== ENCOUNTER 2017-08-17 21:17 | Emergency (ER) | payer SELFPAY ==
[2017-08-17 21:18] VITALS: BMI 24.0
[2017-08-17 21:23] VITALS: BP 100/74; PULSE 108; RESP 16; TEMP 100.1; O2SAT 99
--- NOTE | 2017-08-17 21:35 | ED PDOC ---
Lower Extremity Pain/Injury Time Seen by Provider: 08/17/17 21:31 Chief Complaint (Nursing): Lower Extremity Problem/Injury Chief Complaint (Provider): left ankle injury History Per: Patient, EMS History/Exam Limitations: no limitations Current Symptoms Are (Timing): Still Present Additional Complaint(s): 31-year-old female presents to emergency department via EMS with left ankle pain and swelling s/p trip and fall while walking down stairs at a movie theatre. Patient went back initially to watch the movie after the fall but pain became worse prompting her to contact ambulance and come here. Upon arrival patient is tearful stating she is in severe pain. Patient denies head injury or loss of consciousness. PMD: No Family Provider Past Medical History Reviewed: Historical Data, Nursing Documentation, Vital Signs Vital Signs: Last Vital Signs Temp 100.1 F H 08/17/17 21:21 Pulse 108 H 08/17/17 21:21 Resp 16 08/17/17 21:21 BP 100/74 08/17/17 21:21 Pulse Ox 99 08/17/17 21:21 - Medical History PMH: Anxiety, Asthma, Bipolar Disorder, Depression Denies: Diabetes, Chronic Kidney Disease, Seizures, Sexually Transmitted Disease Other PMH: marquise-danlos syndrome - Surgical History Surgical History: No Surg Hx - Family History Family History: States: Unknown Family Hx - Social History Current smoker - smoking cessation education provided: No Alcohol: Occasional Drugs: Denies - Home Medications Home Medications: Ambulatory Orders Medication Instructions Recorded Ferrous Sulfate 325 mg PO BID #60 tablet 06/14/17 - Allergies Allergies/Adverse Reactions: Allergies Allergy/AdvReac Type Severity Reaction Status Date / Time FISH Allergy ANAPHYLAXIS Verified 04/23/17 02:16 peanut Allergy ANAPHYLAXIS Verified 04/23/17 02:16 sesame seed Allergy ANAPHYLAXIS Verified 08/17/17 21:21 tree nut Allergy ANAPHYLAXIS Verified 04/23/17 02:16 Review of Systems ROS Statement: Except As Marked, All Systems Reviewed And Found Negative Musculoskeletal: Positive for: Other (left ankle pain) Physical Exam - Reviewed Nursing Documentation Reviewed: Yes Vital Signs Reviewed: Yes - Physical Exam Appears: Positive for: Well, Non-toxic, No Acute Distress Skin: Positive for: Normal Color. Negative for: Rash Eye Exam: Positive for: Normal appearance Pulses-Dorsalis Pedis (L): 2+ Extremity: Positive for: Other ((+) moderate tenderness and swelling to left lateral malleous, (+) nontender left foot) Neurologic/Psych: Positive for: Alert, Oriented, Gait (steady) - Laboratory Results Urine POC: Negative (patient refused test, states she is certain she is not ) - ECG O2 Sat by Pulse Oximetry: 99 (RA) Pulse Ox Interpretation: Normal - Other Rad Left foot x-ray X-Ray: Interpreted by Me, Viewed By Me X-Ray Interpretation: STS, no fx, no dis Medical Decision Making Medical Decision Makin-year-old female with left ankle injury Plan: - Motrin Tab - Left Ankle X-Ray Patient aware of x-ray results. Patient noted to be ambulatory in ED and able to fully weight-bear. Advised NSAIDs for pain, ice and elevation. Crutches declined. Aircast applied to left ankle, neurovascular intact status post placement. Patient referred to podiatry clinic for follow-up Scribe Attestation: Documented by Wolf Toro, acting as a scribe for Joanna Tyson PA-C. Provider Scribe Attestation: All medical record entries made by the Scribe were at my direction and personally dictated by me. I have reviewed the chart and agree that the record accurately reflects my personal performance of the history, physical exam, medical decision making, and the department course for this patient. I have also personally directed, reviewed, and agree with the discharge instructions and disposition. Disposition - Clinical Impression Clinical Impression: Ankle sprain - Patient ED Disposition Is Patient to be Admitted: No Counseled Patient/Family Regarding: Studies Performed, Diagnosis, Need For Followup - Disposition Referrals: Podiatry Clinic [Outside] Disposition: Routine/Home Disposition Time: 22:36 Condition: STABLE Additional Instructions: Ice, rest and elevate affected area. Take [id number] Motrin for pain as needed. Follow-up with podiatry clinic for any persistent symptoms. Instructions: Ankle Sprain (DC) Forms: [employer] / [employer] (Serbian)
--- NOTE | 2017-08-18 11:01 | RAD ---
Date of service: 08/17/2017 PROCEDURE: Left Ankle Radiographs. HISTORY: trauma COMPARISON: None FINDINGS: BONES: No evidence of acute displaced fracture nor dislocation. Osseous structures appear grossly intact. . Small plantar the and tiny posterior calcaneal enthesophytes are present. JOINTS: Normal. No osteoarthritis. Ankle mortise maintained. Talar dome intact SOFT TISSUES: Moderate to fairly significant soft tissue swelling over the lateral malleolus. Minor medial soft tissue swelling. Suspect small joint effusion. OTHER FINDINGS: None. IMPRESSION: No evidence of acute displaced fracture nor dislocation. Osseous structures appear grossly intact. . Small plantar the and tiny posterior calcaneal enthesophytes are present.
== END 2017-08-17 22:43 | disposition home or self-care (01) ==
LOC: H.ER 21:17
DX: S93.402A Sprain of unspecified ligament of left ankle, initial encounter (principal); Z86.59 Personal history of other mental and behavioral disorders; J45.909 Unspecified asthma, uncomplicated; Q79.6 Ehlers-Danlos syndromes; W10.8XXA Fall (on) (from) other stairs and steps, initial encounter; Y92.254 Theater (live) as the place of occurrence of the external cause